=== PATIENT | male | born 1980 | race Caucasian/White ===

== ENCOUNTER 2017-03-24 14:00 | Emergency (ER) | payer BC, OTHER ==
[~2017-03-24] VITALS: Ht 185.4 cm; Wt 100.0 kg
[~2017-03-24 14:00] MED LIST: HUMALOG SQ; LANTUSP SQ; LEVO.075 PO; NAPR550 PO
[2017-03-24 14:17] VITALS: BP 140/74; PULSE 93; RESP 16; TEMP 98.3; O2SAT 96
[2017-03-24] MEDS ORDERED: LANTUS2P SQ (15:10)
[2017-03-24] MEDS ORDERED: HUMALOG SQ (15:10)
[2017-03-24] MEDS ORDERED: LEVO112T2 PO (15:10)
[2017-03-24] MEDS ORDERED: LEVEMIR SQ (15:10)
[2017-03-24] MEDS ORDERED: IBUPROFEN 600 MG TAB PO ONE (15:30)
--- NOTE | 2017-03-24 16:28 | PD ---
HPI . Right knee pain Chief Complaint: Musculoskeletal Complaint Time Seen by Provider: 15:19 Travel History International Travel<30 days: No Contact w/Intl Traveler<30days: No Traveled to known affect area: No History of Present Illness HPI 36-year-old male patient presents emergency department for evaluation of right knee pain. 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 Patient denies any other injuries or traumas occurring to the right knee recently. Patient has a history of a right knee injury that required orthoscopic surgery 20 years ago and approximately 4 years ago had an effusion drained from his right knee. Patient's extremity is neurovascularly intact. Patient is able to try with a limp. Right knee is mildly edematous, no ecchymosis, erythema or cyanosis noted. Patient has type 1 diabetes and is insulin dependent. PFSH Past Medical History Anxiety: Yes Depression: Yes (one recent Robbins act episode) Diabetes: Yes (INSULIN DEPENDENT) Patient Takes Glucophage: No Diminished Hearing: No Hypertension: Yes Neurologic: Yes (DEPRESSION, ANXIETY, ) Psychiatric: Yes Integumentary: Yes (PRESENTLY HAS SUN BURN) Immunizations Current: Yes Thyroid Disease: Yes Influenza Vaccination: No ?: Not Past Surgical History Joint Replacement: Yes (RIGHT KNEE SURGERY 2x SAME KNEE) Social History Alcohol Use: Yes (occassional) Tobacco Use: No Substance Use: No Allergies-Medications (Allergen,Severity, Reaction): Coded Allergies: No Known Allergies (Verified , 03/24/17) Reported Meds & Prescriptions Reported Meds & Active Scripts Active Reported Lantus Inj (Insulin Glargine) 1,000 Unit/10 Ml Vial 50 Units SQ HS Levothyroxine (Levothyroxine Sodium) 112 Mcg Tab 112 Mcg PO DAILY Humalog Inj (Insulin Human Lispro) 1,000 Unit/10 Ml Vial 5-25 Units SQ TIDAC Max dose at bedtime:( )units; sugars < 70,(0)units; sugars 150-199,(5)units; sugars 200-249,(10)units; sugars 250-299,(15)units; sugars 300-349,(20)units; sugars more than 349,(25)units. Review of Systems Except as stated in HPI: all other systems reviewed are Neg Physical Exam Narrative GENERAL: Well-nourished, well-developed 36-year-old male patient in no acute distress. Nontoxic appearing. SKIN: Focused skin assessment warm/dry. HEAD: Normocephalic. Atraumatic. EYES: No scleral icterus. No injection or drainage. NECK: Supple, trachea midline. No JVD or lymphadenopathy. CARDIOVASCULAR: Regular rate and rhythm without murmurs, gallops, or rubs. 2+ pedal pulses bilaterally. Cap refill 2 seconds. RESPIRATORY: Breath sounds equal bilaterally. No accessory muscle use. GASTROINTESTINAL: Abdomen soft, non-tender, nondistended. MUSCULOSKELETAL: Right knee mildly edematous, no erythema, ecchymosis, obvious deformity noted. BACK: Nontender without obvious deformity. No CVA tenderness. Data Data Last Documented VS Vital Signs Date Time Temp Pulse Resp B/P (MAP) Pulse Ox O2 Delivery O2 Flow Rate FiO2 03/24/17 14:17 98.3 93 16 140/74 (96) 96 Orders Orders Knee, Complete (4vws) (03/24/17 15:28) Ice/Cold Pack (03/24/17 15:28) Ibuprofen (Motrin) (03/24/17 15:30) MDM Medical Decision Making Medical Screen Exam Complete: Yes Emergency Medical Condition: Yes Differential Diagnosis Differential diagnosis include but not limited to right knee sprain, right knee contusion, right knee effusion, osteoarthritis of the right knee Narrative Course 36-year-old male patient presents emergency for evaluation of right knee pain. X-ray of the right knee ordered and pending. Ice applied to the right knee. Ibuprofen ordered for pain and swelling. X-ray of the right knee shows no fracture or dislocation. Cornelius wrap will be applied to the right knee and patient will be discharged home with instructions to follow up with primary care. Diagnosis Primary Impression: Knee pain Qualified Codes: M25.561 - Pain in right knee Referrals: Primary Care Physician Patient Instructions: General Instructions, Knee Pain (GEN) Additional Instructions: Please return to emergency department if your symptoms return or worsen. Follow up with your primary care provider. May use [id number] ibuprofen as needed for pain and swelling. May use ice as needed for pain and swelling. Right therapy to right knee, rest, ice, Cornelius wrap and ambulatory and elevated when resting. Disposition: 01 DISCHARGE HOME Condition: Stable Yady Duron Mar 24, 2017 16:28
--- NOTE | 2017-03-24 16:49 | RADRPT ---
EXAM DATE/TIME: 03/24/2017 16:23 [facility] COMPARISON: No previous studies available for comparison. INDICATIONS : Right knee pain and swelling for several days. No known injury. MEDICAL HISTORY : None. SURGICAL HISTORY : Laporscopic right knee surgery. ENCOUNTER: Initial ACUITY: 3 days PAIN SCORE: 8/10 LOCATION: Right knee. FINDINGS: Four view examination of the right knee demonstrates no evidence of fracture or dislocation. Bony mi neralization is normal. The articular surfaces are intact. The suprapatellar soft tissues have a no rmal configuration. CONCLUSION: Negative exam. Booker Iniguez MD on March 24, 2017 at 16:48 Board Certified Radiologist. This report was verified electronically.
== END 2017-03-24 17:22 | disposition home or self-care (01) ==
LOC: PHEFT 14:00
DX: M25.561 Pain in right knee (principal); E10.9 Type 1 diabetes mellitus without complications; Z79.4 Long term (current) use of insulin
CPT/HCPCS: 73564; 99283